=== PATIENT | female | born 1935 | race Caucasian/White ===

== ENCOUNTER 2017-06-05 15:24 | Outpatient (CLI) | payer MEDICARE ==
--- NOTE | 2017-06-05 16:54 | MRI ---
MRI OF LUMBAR SPINE WITHOUT CONTRAST 06/05/17 HISTORY: Lumbar radiculitis. Left leg pain that radiates down the knee. Symptoms x8 years. Worsening pain i n the last three weeks. COMPARISON: None. TECHNIQUE: MRI of the lumbar spine is performed without intravenous gadolinium administration. Multisequential, multiplanar imaging is performed. FINDINGS: There are evidence of previous lumbar spine surgery with laminectomy defect at L2-L3 L3-L4, L4-L5. Th ere is appropriate T1 marrow signal intensity of the lumbar vertebrae. Symmetric signal intensity of the psoas muscles. The visualized solid organs have appropriate signal intensity. The conus medullaris terminates at the inferior end plate of T12. There is rightward curvature of the lumbar spine. T12-L1: Adequate disc hydration. No significant central canal stenosis. Mild right and moderate left foraminal narrowing. L1-L2: Disc desiccation with mild loss of disc space height. Generalized disc bulge, ligamentum flavu m thickening and facet hypertrophy result in mild central canal stenosis. Moderate right and left for aminal narrowing. L2-L3: Desiccation with mild loss of disc space height. Generalized disc bulge with left and right pa racentral components. Mild stenosis of the thecal sac. There is narrowing of both subarticular zones secondary to disc material. There is partial obscuration traversing right L3 nerve root. There is jo e mass effect upon the traversing left L3 nerve root. Mild to moderate right and moderate left neural foraminal narrowing. L3-L4: Posterior decompressive laminectomy defect. Generalized disc bulge without significant central canal stenosis. Moderate right and severe left foraminal narrowing. L4-L5: Posterior decompressive laminectomy defect. Desiccation with broad based disc bulge. There is narrowing of both subarticular zones. Partial obscuration of traversing left L5 nerve root. There may be some mass effect without obscuration of traversing left L5 nerve root. Moderate to severe right a nd mild left neural foraminal narrowing. L5-S1: Adequate disc hydration. No significant posterior disc abnormality. No significant central can al stenosis. Neural foramina are patent. At the S1 level, thecal sac is prominent. Thecal sac also ap pears to be prominent at the S2 level. Evaluation is limited on this exam. IMPRESSION: Postsurgical and degenerative changes of the lumbar spine as above. Comparison with prior imaging wou ld be beneficial. POS: [facility]
== END 2017-06-05 15:25 | disposition home or self-care (01) ==
LOC: TBSIIMAG 15:24
PROVIDERS: ATTEND Anesthesiology Pain Medicine
DX: M47.26 Other spondylosis with radiculopathy, lumbar region (principal); Z98.890 Other specified postprocedural states
CPT/HCPCS: 72148

== ENCOUNTER 2017-06-21 09:07 | Outpatient (CLI) | payer MEDICARE | END 2017-06-21 09:08 | disposition home or self-care (01) | LOC: BICMAMMO 09:07 | PROVIDERS: ATTEND Internal Medicine Hematology & Oncology | DX: M85.80 Other specified disorders of bone density and structure, unspecified site (principal); C50.919 Malignant neoplasm of unspecified site of unspecified female breast; K21.9 Gastro-esophageal reflux disease without esophagitis | CPT/HCPCS: 77080 ==

== ENCOUNTER 2017-12-25 09:17 | Outpatient (CLI) | payer MEDICARE | END 2017-12-25 09:18 | disposition home or self-care (01) | LOC: BICMAMMO 09:17 | PROVIDERS: ATTEND Internal Medicine Hematology & Oncology | DX: Z08 Encounter for follow-up examination after completed treatment for malignant neoplasm (principal); Z85.3 Personal history of malignant neoplasm of breast | CPT/HCPCS: 77066; G0279 ==

== ENCOUNTER 2018-07-02 09:42 | Outpatient (CLI) | payer MEDICARE ==
--- NOTE | 2018-07-02 12:59 | BD ---
BONE DENSITOMETRY USING DEXA: Date: 07/02/18 HISTORY: Postmenopausal screening for osteoporosis. FINDINGS: Lumbar Spine: BMD (g/cm2) L1 0.936 T-Score: -0.5 Z-Score: 2.0 L2 0.996 T-Score: -0.3 Z-Score: 2.5 L3 0.990 T-Score: -0.9 Z-Score: 2.1 L4 0.910 T-Score: -1.4 Z-Score: 1.7 L1-L4 0.959 T-Score: -0.8 Z-Score: 2.0 Femoral Neck: 0.617 T-Score: -2.1 Z-Score: 0.4 Total Femur: 0.823 T-Score: -1.0 Z-Score: 1.3 There has been interval improvement of 6.5% in the bone mineral density of the lumbar spine and an im provement of 3.5% in the bone mineral density of the proximal femur since 06/19/13. The 10 year fracture risk for a major osteoporotic fracture is 14% and for a hip fracture is 4.7%. IMPRESSION: Osteopenia. POS: OFF
== END 2018-07-02 09:43 | disposition home or self-care (01) ==
LOC: BICMAMMO 09:42
PROVIDERS: ATTEND Internal Medicine Hematology & Oncology
DX: M85.89 Other specified disorders of bone density and structure, multiple sites (principal); C50.919 Malignant neoplasm of unspecified site of unspecified female breast
CPT/HCPCS: 77080

== ENCOUNTER 2018-07-26 08:22 | Outpatient (CLI) | payer MEDICARE ==
[2018-07-26] MEDS ORDERED: Iopamidol 370 76% 100 ML VIAL ONE (09:00)
--- NOTE | 2018-07-26 09:54 | CT ---
FEXAM:CT of chest and abdomen performed with contrast enhancement HISTORY: Follow-up of breast cancer. Weight loss over the past 2-3 months. COMPARISON: 07/31/2003 study FINDINGS:The lungs are clear of any infiltrative process. Minimal linear scarring in the lung bases. No pulmonary nodules or pleural effusions. Thoracic aorta is normal in caliber. No significant mediastinal, hilar or axillary lymphadenopathy. CT of abdomen performed with contrast enhancement: Hepatic cyst are again identified within the liver . The spleen is within normal limits. Pancreas and gallbladder regions are unremarkable. Right and left adrenal glands and right and left kidneys are normal there is no significant periaorti c or mesenteric adenopathy. A retroaortic left renal vein is noted. Review of osseous structures show arthritic changes of the lumbar spine and scoliosis. IMPRESSION: 1. No evidence of metastatic disease. 2. Hepatic cysts. 3. Scoliosis.
== END 2018-07-26 08:23 | disposition home or self-care (01) ==
LOC: SCSCT 08:22
PROVIDERS: ATTEND Internal Medicine Hematology & Oncology
DX: C50.411 Malignant neoplasm of upper-outer quadrant of right female breast (principal); R53.83 Other fatigue; R63.4 Abnormal weight loss; K76.89 Other specified diseases of liver; M41.9 Scoliosis, unspecified
CPT/HCPCS: 71260; 82565; Q9967

== ENCOUNTER 2018-11-19 09:21 | Outpatient (CLI) | payer MEDICARE ==
[~2018-11-19 09:21] MED LIST: Iopamidol 370 76% 100 ML VIAL ONE
--- NOTE | 2018-11-19 11:15 | CT ---
CT ABDOMEN AND PELVIS WITH ORAL AND IV CONTRAST: HISTORY: Abdominal bloating. Abdominal pain. Bilateral lower quadrant abdominal pain. Breast cancer. FINDINGS: There are minimal dependent changes in the lung bases. No calcified gallstones are seen. There are cysts in the liver, which are also seen on the PET CT of 06/24/2013. The largest of these measures 2 .2 cm, in the left lobe. The spleen, pancreas, adrenal glands, and kidneys are normal. No free air, free fluid, or lymphadenopathy is seen in the abdomen or pelvis. There is no evidence o f aneurysmal dilatation of the abdominal aorta. A retroaortic left renal vein is present. There are degenerative changes with dextroscoliosis of the lumbar spine. A total left hip arthroplasty is pres ent. The small bowel loops are not abnormally dilated. There is sigmoid diverticulosis. IMPRESSION: 1. Liver cysts. 2. Sigmoid diverticulosis. POS: OFF
== END 2018-11-19 09:22 | disposition home or self-care (01) ==
LOC: SCSCT 09:21
PROVIDERS: ATTEND Internal Medicine Gastroenterology
DX: R14.0 Abdominal distension (gaseous) (principal); R10.30 Lower abdominal pain, unspecified; K76.89 Other specified diseases of liver; K57.30 Diverticulosis of large intestine without perforation or abscess without bleeding
CPT/HCPCS: 74177; 82565; Q9967

== ENCOUNTER 2018-12-27 14:06 | Outpatient (CLI) | payer MEDICARE ==
--- NOTE | 2018-12-27 14:51 | MMO ---
Bilateral MAMMO Bilat Diag [facility]. CLINICAL HISTORY: Patient is 83 years old and is seen for screening. The patient has the following family history of breast cancer: mother, at age 80, malignant (generic), LUNG AND BRAIN. The patient has a history of malignant (generic) in the right breast in 2013. The patient has a history of right Lumpectomy in May, - malignant. VIEWS: The views performed were: bilateral craniocaudal with tomosynthesis and bilateral mediolateral oblique with tomosynthesis. FILMS COMPARED: The present examination has been compared to prior imaging studies performed at [facility] on 12/15/2015, 06/19/2016, 12/21/2016 and 12/25/2017. MAMMOGRAM FINDINGS: There are scattered fibroglandular densities. There is an area of skin retraction, an area of architectural distortion and a post operative change seen in the right breast. There are no suspicious masses, suspicious calcifications, or new areas of architectural distortion. IMPRESSION: THERE IS NO MAMMOGRAPHIC EVIDENCE OF MALIGNANCY. A ROUTINE FOLLOW-UP MAMMOGRAM IN 1 YEAR IS RECOMMENDED. THE RESULTS OF THIS EXAM WERE SENT TO THE PATIENT. ACR BI-RADS Category 2 - Benign finding MAMMOGRAPHY NOTE: 1. A negative mammogram report should not delay a biopsy if a dominant of clinically suspicious mass is present. 2. Approximately 10% to 15% of breast cancers are not detected by mammography. 3. Adenosis and dense breasts may obscure an underlying neoplasm. Reported by: SVETLANA PLATA MD Electonically Signed: [id number]
== END 2018-12-27 14:07 | disposition home or self-care (01) ==
LOC: BICMAMMO 14:06
PROVIDERS: ATTEND Internal Medicine Hematology & Oncology
DX: Z08 Encounter for follow-up examination after completed treatment for malignant neoplasm (principal); Z85.3 Personal history of malignant neoplasm of breast
CPT/HCPCS: 77066; G0279; 77063; 77067

== ENCOUNTER 2019-06-13 10:54 | Outpatient (CLI) | payer MEDICARE ==
--- NOTE | 2019-06-13 12:08 | ULT ---
EXAM: US Gallbladder RUQ CLINICAL HISTORY: Diarrhea. Chest pain.. COMPARISON: None. FINDINGS: Pancreas: Evaluate the pancreas is limited due to bowel gas. Liver:Hepatic parenchyma has a normal echotexture. No hepatic solid masses or intrahepatic biliary di latation. Anechoic focus in the left hepatic lobe measures 1.8 x 1.4 x 1.5 cm, compatible with a hepatic cyst. Right hepatic lobe: 14.5 cm Gallbladder: No sonographic evidence of cholelithiasis, gallbladder wall thickening or pericholecysti c fluid. Stanley's sign:Negative Portal Vein: Patent. Appropriate directional flow Bile ducts: Common bile duct diameter is 0.4 cm Right kidney: No hydronephrosis. Right kidney measures 10.0 x 3.5 x 4.0 cm in length. IMPRESSION: 1. No sonographic evidence of cholelithiasis or conus status. 2. Incidental left hepatic lobe cyst.
== END 2019-06-13 10:55 | disposition home or self-care (01) ==
LOC: SCSULT 10:54
PROVIDERS: ATTEND Internal Medicine Gastroenterology
DX: K52.832 Lymphocytic colitis (principal); R19.7 Diarrhea, unspecified; R07.9 Chest pain, unspecified; K76.89 Other specified diseases of liver
CPT/HCPCS: 76705; 87045; 87046; 87177; 87324; 87449

== ENCOUNTER 2019-09-24 10:42 | Outpatient (CLI) | payer MEDICARE ==
--- NOTE | 2019-09-24 12:24 | BD ---
BONE DENSITOMETRY USING DEXA: Date: 09/24/2019 HISTORY: Postmenopausal screening for osteoporosis. FINDINGS: Lumbar Spine: BMD (g/cm2) L1 0.877 T-Score: -1.0 L2 1.008 T-Score: -0.2 L3 0.977 T-Score: -1.0 L4 0.851 T-Score: -1.9 L1-L4 0.926 T-Score: -1.1 Femoral Neck: 0.621 T-Score: -2.1 Total Femur: 0.725 T-Score: -1.8 There has been interval reduction of 3.5% in the bone mineral density of the lumbar spine and a reduc tion of 12% in the bone mineral density of the proximal femur since 07/02/2018. The 10 year fracture risk for a major osteoporotic fracture is 14% and for a hip fracture is 4.5%. IMPRESSION: Osteopenia. POS: [facility]
== END 2019-09-24 10:43 | disposition home or self-care (01) ==
LOC: BICMAMMO 10:42
PROVIDERS: ATTEND Internal Medicine Hematology & Oncology
DX: M85.89 Other specified disorders of bone density and structure, multiple sites (principal); C50.411 Malignant neoplasm of upper-outer quadrant of right female breast; Z78.0 Asymptomatic menopausal state
CPT/HCPCS: 77080

== ENCOUNTER 2019-12-31 09:35 | Outpatient (CLI) | payer MEDICARE ==
--- NOTE | 2019-12-31 10:16 | MMO ---
Bilateral MAMMO Bilat Screen [facility]. CLINICAL HISTORY: Patient is 84 years old and is seen for screening. The patient has the following family history of breast cancer: mother, at age 80, malignant (generic), LUNG AND BRAIN. The patient has a history of malignant (generic) in the right breast in 2013. The patient has a history of right Lumpectomy in May, - malignant. VIEWS: The views performed were: bilateral craniocaudal with tomosynthesis and bilateral mediolateral oblique with tomosynthesis. FILMS COMPARED: The present examination has been compared to prior imaging studies performed at [facility] on 06/19/2016, 12/21/2016, 12/25/2017 and 12/27/2018. This study has been interpreted with the assistance of computer-aided detection. MAMMOGRAM FINDINGS: There are scattered fibroglandular densities. There are stable RIGHT SIDED post-operative changes. Benign calcifications are noted bilaterally. There are no suspicious masses, suspicious calcifications, or new areas of architectural distortion. IMPRESSION: THERE IS NO MAMMOGRAPHIC EVIDENCE OF MALIGNANCY. A ROUTINE FOLLOW-UP MAMMOGRAM IN 1 YEAR IS RECOMMENDED. THE RESULTS OF THIS EXAM WERE SENT TO THE PATIENT. ACR BI-RADS Category 2 - Benign finding MAMMOGRAPHY NOTE: 1. A negative mammogram report should not delay a biopsy if a dominant of clinically suspicious mass is present. 2. Approximately 10% to 15% of breast cancers are not detected by mammography. 3. Adenosis and dense breasts may obscure an underlying neoplasm. Reported by: SALVADOR VAZQUEZ MD Electonically Signed: [id number]
== END 2019-12-31 09:36 | disposition home or self-care (01) ==
LOC: BICMAMMO 09:35
PROVIDERS: ATTEND Internal Medicine Hematology & Oncology
DX: Z12.31 Encounter for screening mammogram for malignant neoplasm of breast (principal); Z80.3 Family history of malignant neoplasm of breast; Z98.890 Other specified postprocedural states; Z85.3 Personal history of malignant neoplasm of breast
CPT/HCPCS: 77063; 77067

== ENCOUNTER 2020-03-09 14:01 | Outpatient (CLI) | payer MEDICARE ==
--- NOTE | 2020-03-09 14:56 | RAD ---
Lumbar spine: 4 views INDICATIONS:Low back pain COMPARISON:None FINDINGS: Vertebral body height is preserved. Posterior listhesis at L3-4. Loss of disc space at L2-3, L3-4 and L4-5. Scoliotic curvature with convexity to right. Colony at L2-3. This is measured at 30 degrees. Associated degenerative change with spurring and lateral subluxation of L3. Prominent facet hypertrop hy. Posterior alignment is preserved with flexion and extension. No soft tissue abnormality. IMPRESSION: Lumbar scoliosis with degenerative changes described.
== END 2020-03-09 14:02 | disposition home or self-care (01) ==
LOC: SCSRAD 14:01
PROVIDERS: ATTEND Neurological Surgery
DX: M54.5 Low back pain (principal); M47.816 Spondylosis without myelopathy or radiculopathy, lumbar region; M41.9 Scoliosis, unspecified
CPT/HCPCS: 72120

== ENCOUNTER 2020-12-09 11:58 | Emergency (ER) | payer MEDICARE, OTHER ==
[2020-12-09] MEDS ORDERED: Morphine 4 MG/ML VIAL ONE (12:31)
[2020-12-09] MEDS ORDERED: Ondansetron PF 4 MG/2 ML Vial ONE (12:32)
[2020-12-09] MEDS ORDERED: Fentanyl 100 MCG/2 ML VIAL ONE (12:34)
[2020-12-09 12:44] LABS: #Basophils 0.1 thou/uL (0.0-0.2); #Lymphocytes 0.9 thou/uL (1.20-3.40); #Monocytes 0.6 thou/uL (0.11-0.59); #Neutrophils 5.2 thou/uL (1.40-6.50); %Basophils 0.8 % (0.0-1.0); %Eosinophils 0.5 % (0.0-10.0); %Lymphocytes 13.3 % (21.0-51.0); %Monocytes 8.7 % (0.0-10.0); %Neutrophils 76.8 % (42.0-75.0); Hemoglobin 12.1 g/dL (12.0-16.0); Mean Corpuscular HGB CONC 32.7 g/dL (32.0-36.0); Mean Corpuscular Hemoglobin 29.3 pg (27.0-31.0); Mean Corpuscular Volume 89.8 fL (78.0-98.0); Mean Platelet Volume 8.2 fL (7.4-10.4); Platelet Count 187 thou/uL (130-400); RBC Distribution Width 13.4 % (11.5-14.5); Red Blood Cell (RBC) Count 4.13 mill/uL (4.20-5.40); White Blood Cell (WBC) Count 6.8 thou/uL (4.8-10.8)
[2020-12-09 13:08] LABS: ALT (SGPT) 15 U/L (8-55); AST (SGOT) 22 U/L (5-34); Alkaline Phosphatase 89 U/L (40-110); Anion Gap 11 mmol/L (10-20); BUN (Urea Nitrogen) 14 mg/dL (9.8-20.1); Bilirubin, Total 0.5 mg/dL (0.2-1.2); Calc. Creatinine Clearance 0 mL/min (70-130); Calcium 9.2 mg/dL (7.8-10.44); Carbon Dioxide 30 mmol/L (23-31); Chloride 103 mmol/L (98-107); Globulin 2.5 g/dL (2.4-3.5); Glucose 99 mg/dL (83-110); Potassium 4.2 mmol/L (3.5-5.1); Protein, Total 6.5 g/dL (5.8-8.1); Sodium 140 mmol/L (136-145)
[2020-12-09] MEDS ORDERED: PROPOFOL 20 ML ONE (13:10)
[2020-12-09] MEDS ORDERED: diphenhydrAMINE 50 MG/ML VIAL ONE (15:04)
[2020-12-09] MEDS ORDERED: methylPREDNISolone Sod Succ/PF 125 MG/2 ML VIAL ONE (16:00)
[2020-12-09] MEDS ORDERED: Famotidine/PF 20 mg/2ml Vial ONE (16:00)
== END 2020-12-09 17:23 | disposition home or self-care (01) ==
LOC: ERS 11:58
DX: T84.021A Dislocation of internal left hip prosthesis, initial encounter (principal); I48.91 Unspecified atrial fibrillation; Z79.01 Long term (current) use of anticoagulants; Z96.642 Presence of left artificial hip joint; W19.XXXA Unspecified fall, initial encounter; Y92.89 Other specified places as the place of occurrence of the external cause
CPT/HCPCS: 27250; 36415; 72170; 80053; 85025; 93005; 96374; 96375; 99152; J1200; J2270; J2405; J2704; J2930; J3010; S0028

== ENCOUNTER 2023-01-25 08:46 | Outpatient (CLI) | payer MEDICARE | END 2023-01-25 08:47 | disposition home or self-care (01) | LOC: SCSMRI 08:46 | PROVIDERS: ATTEND Internal Medicine | DX: R16.0 Hepatomegaly, not elsewhere classified (principal); K76.89 Other specified diseases of liver | CPT/HCPCS: 74183 ==